=== PATIENT | male | born 1945 | race Caucasian/White ===

== ENCOUNTER 2016-11-17 14:58 | Outpatient (CLI) | payer OTHER ==
[~2016-11-17 14:58] MED LIST: ALPR0.5T96 PO; ASA PO; ATOR20TA64 PO; DEXL60CA3 PO; DIGO125T4 PO; DULO60CA41 PO; FLO44 IH; FLUT1DIS5 INH; FOLI-43 PO; GABA-533 PO; HYDROCORTISONE; LIDP TD; MELO-271 PO; MELOXICAM PO; MONT10TA22 PO; MOVE FREE PO; NIZCR60; OSCAL PO; OXYC5TAB84 PO; PRO AIR INH; TAMS-11 PO; THIA100T70 PO
== END 2016-11-17 19:55 | disposition home or self-care (01) ==
LOC: SRD 14:58
PROVIDERS: ATTEND Internal Medicine
DX: S52.591A Other fractures of lower end of right radius, initial encounter for closed fracture (principal); S52.611A Displaced fracture of right ulna styloid process, initial encounter for closed fracture; M79.89 Other specified soft tissue disorders; X58.XXXA Exposure to other specified factors, initial encounter; Y93.89 Activity, other specified; Y92.89 Other specified places as the place of occurrence of the external cause; Y99.8 Other external cause status

== ENCOUNTER 2017-10-21 11:48 | Emergency (ER) | payer OTHER ==
[~2017-10-21] VITALS: Ht 165.1 cm; Wt 72.6 kg
[2017-10-21 11:50] VITALS: BP_SYST 139
[2017-10-21] MEDS ORDERED: DIPHENHYDRAMINE INJ 50 MG/ML VIAL IVP ONE (13:45)
[2017-10-21] MEDS ORDERED: MORPHINE 4 MG/ML INJ. SYRINGE IVP ONE (13:45)
[2017-10-21 14:06] LABS: BASOPHILS # (AUTO) 0.2 K/uL (0.0-0.2); BASOPHILS % (AUTO) 2.1 % (0.0-2.0); EOSINOPHILS # (AUTO) 0.1 K/uL (0.0-0.4); EOSINOPHILS % (AUTO) 1.2 % (0.0-4.0); HEMATOCRIT 42.5 % (36-54); HEMOGLOBIN 14.2 g/dL (14.0-18.0); LYMPHOCYTES # (AUTO) 1.9 K/uL (1.0-5.5); LYMPHOCYTES % (AUTO) 17.2 % (20.5-51.5); MEAN CORPUSCULAR HEMOGLOBIN 33 pg (27-31); MEAN CORPUSCULAR HGB CONC 33 % (32-36); MEAN CORPUSCULAR VOLUME 99 fL (79.0-98.0); MONOCYTES # (AUTO) 1.5 K/uL (0.0-1.0); MONOCYTES % (AUTO) 14.1 % (1.7-9.3); NEUTROPHILS # (AUTO) 7.3 K/uL (1.8-7.7); NEUTROPHILS % (AUTO) 65.4 % (40.0-70.0); PLATELET COUNT (AUTO) 299 K/uL (130-430); RED BLOOD CELL COUNT(AUTO) 4.32 MIL/uL (4.2-6.2)
[2017-10-21 14:20] LABS: PROTHROMBIN TIME 10.2 SECS (9.5-12.5)
[2017-10-21 14:27] LABS: ANION GAP 7 (5-15); CALCIUM 8.7 mg/dL (8.4-11.0); CREATININE 0.66 mg/dL (0.55-1.30); GLUCOSE 150 mg/dL (70-99); POTASSIUM 3.9 mmol/L (3.5-5.1)
[2017-10-21 14:30] LABS: ALANINE AMINOTRANSFERASE 26 U/L (12-78); ASPARTATE AMINOTRANSFERASE 17 U/L (10-37); TOTAL BILIRUBIN 0.7 mg/dL (0.0-1.0)
[2017-10-21 14:36] LABS: CHLORIDE 92 mmol/L (98-107); SODIUM SERUM 130 mmol/L (136-145); UREA NITROGEN, BLOOD 4 mg/dL (8-21)
[2017-10-21 15:30] VITALS: BP_SYST 140
== END 2017-10-21 15:30 | disposition home or self-care (01) ==
LOC: SED 11:48
DX: S42.035A Nondisplaced fracture of lateral end of left clavicle, initial encounter for closed fracture (principal); S52.592A Other fractures of lower end of left radius, initial encounter for closed fracture; J44.9 Chronic obstructive pulmonary disease, unspecified; E11.9 Type 2 diabetes mellitus without complications; K21.9 Gastro-esophageal reflux disease without esophagitis; I10 Essential (primary) hypertension; E87.1 Hypo-osmolality and hyponatremia; R03.0 Elevated blood-pressure reading, without diagnosis of hypertension; Z79.899 Other long term (current) drug therapy; W10.9XXA Fall (on) (from) unspecified stairs and steps, initial encounter; Y93.89 Activity, other specified; Y92.89 Other specified places as the place of occurrence of the external cause; Y99.8 Other external cause status
CPT/HCPCS: 29125; 36415; 71045; 73000; 73030; 73080; 73110; 80053; 83880; 84484; 85025; 85610; 93005; 96374; 96375; 99285; J1200; J2270

== ENCOUNTER 2017-11-07 16:42 | Emergency (ER) | payer OTHER ==
[~2017-11-07] VITALS: Ht 165.1 cm; Wt 72.6 kg
[2017-11-07 16:48] VITALS: BP_SYST 120
[2017-11-07] MEDS ORDERED: NACL 0.9% 1,000 ML IV ONE (16:49)
[2017-11-07] MEDS ORDERED: ASPIRIN 81 MG TAB.CHEW PO ONE (17:00)
[2017-11-07] MEDS ORDERED: MORPHINE 4 MG/ML INJ. SYRINGE IVP ONE ×3 (17:00→18:45)
[2017-11-07] MEDS ORDERED: ONDANSETRON HCL 4 MG/2 ML VIAL IVP ONE (17:00)
[2017-11-07] MEDS ORDERED: DILTIAZEM HCL 25 MG/5 ML VIAL ONE (17:12)
[2017-11-07] MEDS ORDERED: DILTIAZEM HCL 25 MG/5 ML VIAL IVP ONE (17:15)
[2017-11-07 17:32] LABS: BASOPHILS # (AUTO) 0.1 K/uL (0.0-0.2); EOSINOPHILS # (AUTO) 0.1 K/uL (0.0-0.4); EOSINOPHILS % (AUTO) 0.8 % (0.0-4.0); HEMOGLOBIN 13.6 g/dL (14.0-18.0); LYMPHOCYTES # (AUTO) 1.9 K/uL (1.0-5.5); LYMPHOCYTES % (AUTO) 21.8 % (20.5-51.5); MEAN CORPUSCULAR HEMOGLOBIN 32 pg (27-31); MEAN CORPUSCULAR HGB CONC 33 % (32-36); MEAN CORPUSCULAR VOLUME 98 fL (79.0-98.0); MONOCYTES # (AUTO) 0.7 K/uL (0.0-1.0); MONOCYTES % (AUTO) 7.8 % (1.7-9.3); NEUTROPHILS # (AUTO) 5.9 K/uL (1.8-7.7); NEUTROPHILS % (AUTO) 68.6 % (40.0-70.0); PLATELET COUNT (AUTO) 329 K/uL (130-430); RED BLOOD CELL COUNT(AUTO) 4.21 MIL/uL (4.2-6.2); RED CELL DISTRIBUTION WIDTH 12.7 % (9.0-15.0); WHITE BLOOD COUNT (AUTO) 8.7 K/uL (4.8-10.8)
[2017-11-07 17:36] LABS: ANION GAP 8 (5-15); CALCIUM 8.7 mg/dL (8.4-11.0); CHLORIDE 93 mmol/L (98-107); CREATININE 0.79 mg/dL (0.55-1.30); GLUCOSE 214 mg/dL (70-99); POTASSIUM 3.8 mmol/L (3.5-5.1); SODIUM SERUM 126 mmol/L (136-145); UREA NITROGEN, BLOOD 6 mg/dL (8-21)
[2017-11-07 17:39] LABS: INR 1.1 (0.80-1.20); PROTHROMBIN TIME 11.2 SECS (9.5-12.5)
[2017-11-07 17:40] LABS: ALANINE AMINOTRANSFERASE 16 U/L (12-78); ALBUMIN 2.5 g/dL (3.4-4.8); ASPARTATE AMINOTRANSFERASE 17 U/L (10-37); LIPASE 60 U/L (73-393); TOTAL BILIRUBIN 0.8 mg/dL (0.0-1.0)
[2017-11-07] MEDS ORDERED: MORPHINE 4 MG/ML INJ. SYRINGE ONE (18:12)
[2017-11-07 19:20] VITALS: BP_SYST 107
== END 2017-11-07 19:20 | disposition home or self-care (01) ==
LOC: SED 16:42
DX: I48.2 Chronic atrial fibrillation (principal); G89.29 Other chronic pain; E11.65 Type 2 diabetes mellitus with hyperglycemia; J44.9 Chronic obstructive pulmonary disease, unspecified; I10 Essential (primary) hypertension; Z79.899 Other long term (current) drug therapy
CPT/HCPCS: 36415; 71045; 80053; 82550; 83690; 84484; 85025; 85610; 85730; 93005; 96361; 96374; 96375; 96376; 99285; J2270; J2405; J3490; J7030

== ENCOUNTER 2018-05-24 04:40 | Inpatient (IN) | payer OTHER ==
[2018-05-24] VITALS (19 sets, daily range): BP systolic 83–118
[~2018-05-24] VITALS: Ht 162.6 cm; Wt 68.0 kg
[~2018-05-24 04:40] MED LIST changes: +ALPR0.5T PO; -ALPR0.5T96 PO; -DEXL60CA3 PO; +DEXL60CA4 PO; +DIGO-31 PO; -DIGO125T4 PO; +KETO60CR2; -MELO-271 PO; +MELO-89 PO; -NIZCR60; +OXYC-580 PO; -OXYC5TAB84 PO
[2018-05-24] MEDS ORDERED: NACL 0.9% 1,000 ML IV SCH (05:06)
[2018-05-24] MEDS ORDERED: PRED2.5T4 PO (05:11)
[2018-05-24] MEDS ORDERED: BUSP5TAB3 PO (05:13)
[2018-05-24] MEDS ORDERED: BUDE6HFA INH (05:14)
[2018-05-24] MEDS ORDERED: ONDANSETRON HCL 4 MG/2 ML VIAL IVP ONE (05:15)
[2018-05-24] MEDS ORDERED: ATOR10TA68 PO (05:16)
[2018-05-24] MEDS ORDERED: FLUT16SP16 NS (05:20)
[2018-05-24] MEDS ORDERED: SODI1PAC NS (05:21)
[2018-05-24] MEDS ORDERED: ASPI-1153 PO (05:22)
[2018-05-24] MEDS ORDERED: GLUC-228 PO (05:23)
[2018-05-24] MEDS ORDERED: HYDR2TAB7 PO (05:25)
[2018-05-24] MEDS ORDERED: PERC10 PO (05:26)
[2018-05-24] MEDS ORDERED: FINA5TAB3 PO (05:27)
[2018-05-24] MEDS ORDERED: TAMS-11 PO (05:27)
[2018-05-24] MEDS ORDERED: THIA100T70 PO (05:28)
[2018-05-24] MEDS ORDERED: PYRI100T2 PO (05:29)
[2018-05-24] MEDS ORDERED: MULT1CAP34 (05:30)
[2018-05-24] MEDS ORDERED: ZINC50TA37 PO (05:31)
[2018-05-24] MEDS ORDERED: APIX5TAB4 PO (05:35)
[2018-05-24 05:53] LABS: BASOPHILS % (AUTO) 0.3 % (0.0-2.0); EOSINOPHILS # (AUTO) 0.1 K/uL (0.0-0.4); EOSINOPHILS % (AUTO) 0.6 % (0.0-4.0); HEMATOCRIT 29.2 % (36-54); HEMOGLOBIN 9.8 g/dL (14.0-18.0); LYMPHOCYTES # (AUTO) 3.5 K/uL (1.0-5.5); LYMPHOCYTES % (AUTO) 26.2 % (20.5-51.5); MEAN CORPUSCULAR HEMOGLOBIN 28 pg (27-31); MEAN CORPUSCULAR HGB CONC 34 % (32-36); MEAN CORPUSCULAR VOLUME 84 fL (79.0-98.0); MONOCYTES % (AUTO) 7.8 % (1.7-9.3); NEUTROPHILS # (AUTO) 8.6 K/uL (1.8-7.7); NEUTROPHILS % (AUTO) 65.1 % (40.0-70.0); RED BLOOD CELL COUNT(AUTO) 3.48 MIL/uL (4.2-6.2); RED CELL DISTRIBUTION WIDTH 15.5 % (9.0-15.0); WHITE BLOOD COUNT (AUTO) 13.2 K/uL (4.8-10.8)
[2018-05-24 06:07] LABS: PLATELET COUNT (AUTO) 327 K/uL (130-430)
[2018-05-24 06:13] LABS: ANION GAP 11 (5-15); CALCIUM 9.2 mg/dL (8.4-11.0); CHLORIDE 102 mmol/L (98-107); CREATININE 0.83 mg/dL (0.55-1.30); GLUCOSE 173 mg/dL (70-99); POTASSIUM 5.1 mmol/L (3.5-5.1); SODIUM SERUM 137 mmol/L (136-145)
[2018-05-24 06:14] LABS: INR 1.1 (0.80-1.20); PROTHROMBIN TIME 11.1 SECS (9.5-12.5)
[2018-05-24 06:22] LABS: ALANINE AMINOTRANSFERASE 12 U/L (12-78); ALBUMIN 2.4 g/dL (3.4-4.8); ASPARTATE AMINOTRANSFERASE 11 U/L (10-37); LIPASE 70 U/L (73-393); TOTAL BILIRUBIN 0.3 mg/dL (0.0-1.0)
[2018-05-24] MEDS ORDERED: DILTIAZEM HCL 25 MG/5 ML VIAL IVP ONE (06:45)
[2018-05-24] MEDS ORDERED: NACL 0.9% 1,000 ML IV ONE (06:45)
[2018-05-24 07:38] LABS: BILIRUBIN,URINE NEGATIVE (NEGATIVE); BLOOD, URINE NEGATIVE (NEGATIVE); CLARITY/URINE HAZY (CLEAR); COLOR,URINE YELLOW (YELLOW); GLUCOSE,URINE NEGATIVE (NEGATIVE); KETONES,URINE NEGATIVE (NEGATIVE); LEUKOCYTE ESTERASE ,URINE NEGATIVE (NEGATIVE); NITRITE, URINE NEGATIVE (NEGATIVE); PROTEIN URINE NEGATIVE (NEGATIVE); UROBILINOGEN,URINE 0.2 (0.2-1.0)
[2018-05-24] MEDS ORDERED: PANTOPRAZOLE SODIUM 40 MG/VIAL (PROTONIX) IVP ONE (07:45)
[2018-05-24] MEDS ORDERED: ALPRAZolam 0.25 MG TABLET PO SCH (07:45)
[2018-05-24] MEDS: DULoxetine HCL 30 MG CAPSULE.DR (CYMBALTA) PO SCH ×2 (09:00→21:00)
[2018-05-24] MEDS: D5NS 1,000 ML IV SCH ×2 (09:11→18:58)
[2018-05-24] MEDS ORDERED: ALBUTEROL SULFATE 0.083% 2.5 MG/3 ML VIAL.NEB INH PRN (10:00)
[2018-05-24] MEDS ORDERED: IPRATROPIUM BROM 0.5 MG/2.5 ML VIAL.NEB (ATROVENT) INH PRN (10:00)
[2018-05-24] MEDS: ALBUTEROL SULFATE 0.083% 2.5 MG/3 ML VIAL.NEB INH SCH ×4 (11:00→23:00)
[2018-05-24] MEDS: PANTOPRAZOLE SODIUM 40 MG in NS 50 ML IV SCH ×3 (11:10→22:21)
[2018-05-24] MEDS: IPRATROPIUM BROM 0.5 MG/2.5 ML VIAL.NEB (ATROVENT) INH SCH ×4 (11:20→23:00)
[2018-05-24] MEDS ORDERED: NS 500 ML IV ONE (11:30)
[2018-05-24] MEDS ORDERED: SIMETHICONE 40 MG/0.6 ML ML ONE (13:05)
[2018-05-24] MEDS ORDERED: BENZOCAINE 20% 0.5mL UD SPRAY MM ONE (13:05)
[2018-05-24] MEDS ORDERED: METOCLOPRAMIDE HCL 10 MG/2 ML VIAL IVP ONE (13:45)
[2018-05-24] MEDS ORDERED: METOCLOPRAMIDE HCL 10 MG/2 ML VIAL ONE (13:56)
[2018-05-24] MEDS: MIDAZOLAM HCL 5 MG/5 ML VIAL ONE ×2 (14:10→14:12)
[2018-05-24] MEDS: fentaNYL CITRATE/PF 100 MCG/2 ML AMP ONE ×2 (14:10→14:16)
[2018-05-24] MEDS: DILTIAZEM HCL 125 MG in D5W 100 ML IV SCH (14:45)
[2018-05-24] MEDS ORDERED: EPINEPHrine JECT 1 MG/10 ML SYR IVP ONE (15:58)
[2018-05-24 16:58] LABS: HEMATOCRIT 22.3 % (36-54)
[2018-05-24 16:59] LABS: HEMOGLOBIN 7.4 g/dL (14.0-18.0)
[2018-05-24] MEDS ORDERED: LORATADINE 10 MG TABLET PO ONE (17:15)
[2018-05-24] MEDS ORDERED: ACETAMINOPHEN 325 MG TABLET PO ONE (17:15)
[2018-05-24] MEDS: FINASTERIDE 5 MG TABLET (PROSCAR) PO SCH (18:29)
[2018-05-24] MEDS ORDERED: PANTOPRAZOLE SODIUM 40 MG/VIAL (PROTONIX) IVP SCH (21:00)
[2018-05-24] MEDS: ATORVASTATIN 10 MG TABLET PO SCH (21:00)
[2018-05-24 23:24] LABS: HEMATOCRIT 26.7 % (36-54); HEMOGLOBIN 8.9 g/dL (14.0-18.0)
[2018-05-25] VITALS (24 sets, daily range): BP systolic 98–139
[2018-05-25] MEDS: DILTIAZEM HCL 125 MG in D5W 100 ML IV SCH (00:12)
[2018-05-25] MEDS: PANTOPRAZOLE SODIUM 40 MG in NS 50 ML IV SCH ×4 (03:45→21:06)
[2018-05-25] MEDS: D5NS 1,000 ML IV SCH ×2 (03:55→14:16)
[2018-05-25 05:18] LABS: HEMATOCRIT 24.5 % (36-54)
[2018-05-25 05:24] LABS: HEMOGLOBIN 8.2 g/dL (14.0-18.0)
[2018-05-25] MEDS ORDERED: DILTIAZEM HCL 30 MG TABLET PO ONE (07:45)
[2018-05-25] MEDS: PREDNISONE 10 MG TABLET PO SCH (08:25)
[2018-05-25] MEDS: DULoxetine HCL 30 MG CAPSULE.DR (CYMBALTA) PO SCH ×2 (08:28→20:12)
[2018-05-25 10:34] LABS: HEMATOCRIT 23.5 % (36-54); HEMOGLOBIN 7.4 g/dL (14.0-18.0)
[2018-05-25] MEDS: DILTIAZEM HCL 30 MG TABLET PO SCH ×2 (12:38→19:15)
[2018-05-25 16:44] LABS: HEMOGLOBIN 7.5 g/dL (14.0-18.0)
[2018-05-25] MEDS: FINASTERIDE 5 MG TABLET (PROSCAR) PO SCH (19:16)
[2018-05-25] MEDS: ATORVASTATIN 10 MG TABLET PO SCH (20:12)
[2018-05-25 22:45] LABS: HEMATOCRIT 26.9 % (36-54); HEMOGLOBIN 8.9 g/dL (14.0-18.0)
[2018-05-26] VITALS (13 sets, daily range): BP systolic 116–146
[2018-05-26] MEDS: DILTIAZEM HCL 30 MG TABLET PO SCH ×5 (00:29→23:31)
[2018-05-26] MEDS: D5NS 1,000 ML IV SCH ×3 (01:21→23:27)
[2018-05-26] MEDS: PANTOPRAZOLE SODIUM 40 MG in NS 50 ML IV SCH ×5 (02:08→20:34)
[2018-05-26 05:40] LABS: ANION GAP 11 (5-15); CALCIUM 8.4 mg/dL (8.4-11.0); CHLORIDE 109 mmol/L (98-107); CREATININE 0.51 mg/dL (0.55-1.30); GLUCOSE 114 mg/dL (70-99); SODIUM SERUM 142 mmol/L (136-145); UREA NITROGEN, BLOOD 6 mg/dL (8-21)
[2018-05-26 05:41] LABS: BASOPHILS % (AUTO) 0.3 % (0.0-2.0); EOSINOPHILS # (AUTO) 0.2 K/uL (0.0-0.4); EOSINOPHILS % (AUTO) 2.5 % (0.0-4.0); HEMATOCRIT 26.6 % (36-54); HEMOGLOBIN 8.9 g/dL (14.0-18.0); LYMPHOCYTES # (AUTO) 1.9 K/uL (1.0-5.5); LYMPHOCYTES % (AUTO) 29.7 % (20.5-51.5); MEAN CORPUSCULAR HEMOGLOBIN 29 pg (27-31); MEAN CORPUSCULAR HGB CONC 34 % (32-36); MEAN CORPUSCULAR VOLUME 85 fL (79.0-98.0); MONOCYTES # (AUTO) 0.5 K/uL (0.0-1.0); MONOCYTES % (AUTO) 8.2 % (1.7-9.3); NEUTROPHILS # (AUTO) 3.9 K/uL (1.8-7.7); NEUTROPHILS % (AUTO) 59.3 % (40.0-70.0); PLATELET COUNT (AUTO) 153 K/uL (130-430); RED BLOOD CELL COUNT(AUTO) 3.11 MIL/uL (4.2-6.2); RED CELL DISTRIBUTION WIDTH 14.2 % (9.0-15.0); WHITE BLOOD COUNT (AUTO) 6.5 K/uL (4.8-10.8)
[2018-05-26 05:51] LABS: POTASSIUM 2.7 mmol/L (3.5-5.1)
[2018-05-26 08:10] LABS: ANION GAP 11 (5-15); CALCIUM 8.4 mg/dL (8.4-11.0); CHLORIDE 107 mmol/L (98-107); CREATININE 0.54 mg/dL (0.55-1.30); GLUCOSE 109 mg/dL (70-99); SODIUM SERUM 141 mmol/L (136-145); UREA NITROGEN, BLOOD 5 mg/dL (8-21)
[2018-05-26 08:23] LABS: POTASSIUM 2.8 mmol/L (3.5-5.1)
[2018-05-26] MEDS: DULoxetine HCL 30 MG CAPSULE.DR (CYMBALTA) PO SCH ×2 (08:37→20:32)
[2018-05-26] MEDS: PREDNISONE 10 MG TABLET PO SCH (08:37)
[2018-05-26 08:59] LABS: UREA NITROGEN, BLOOD 64 mg/dL (8-21)
[2018-05-26] MEDS ORDERED: POTASSIUM CHLORIDE 20 MEQ TAB.PRT.SR PO ONE (09:00)
[2018-05-26 14:54] LABS: HEMOGLOBIN 9.5 g/dL (14.0-18.0)
[2018-05-26 16:09] LABS: HEMATOCRIT 26.4 % (36-54)
[2018-05-26] MEDS: FINASTERIDE 5 MG TABLET (PROSCAR) PO SCH (17:25)
[2018-05-26] MEDS ORDERED: MENTHOL/ZINC OXIDE 113 GM OINT. TP PRN (18:30)
[2018-05-26 19:51] LABS: HEMATOCRIT 25.9 % (36-54)
[2018-05-26] MEDS: ATORVASTATIN 10 MG TABLET PO SCH (20:31)
[2018-05-27] MEDS: PANTOPRAZOLE SODIUM 40 MG in NS 50 ML IV SCH ×3 (01:31→11:45)
[2018-05-27 01:39] VITALS: BP_SYST 108
[2018-05-27] MEDS: DILTIAZEM HCL 30 MG TABLET PO SCH ×3 (05:46→18:59)
[2018-05-27] MEDS: D5NS 1,000 ML IV SCH (05:48)
[2018-05-27 08:00] VITALS: BP_SYST 147
[2018-05-27] MEDS: PREDNISONE 10 MG TABLET PO SCH (08:33)
[2018-05-27] MEDS: DULoxetine HCL 30 MG CAPSULE.DR (CYMBALTA) PO SCH (08:34)
[2018-05-27 11:57] LABS: HEMOGLOBIN 9.1 g/dL (14.0-18.0); RED BLOOD CELL COUNT(AUTO) 3.21 MIL/uL (4.2-6.2); WHITE BLOOD COUNT (AUTO) 11.4 K/uL (4.8-10.8)
[2018-05-27 11:58] LABS: HEMATOCRIT 27.1 % (36-54); LYMPHOCYTES % (AUTO) 15.4 % (20.5-51.5); MEAN CORPUSCULAR HEMOGLOBIN 28 pg (27-31); MEAN CORPUSCULAR HGB CONC 34 % (32-36); MEAN CORPUSCULAR VOLUME 84 fL (79.0-98.0); MONOCYTES % (AUTO) 7.5 % (1.7-9.3); NEUTROPHILS % (AUTO) 73.6 % (40.0-70.0); PLATELET COUNT (AUTO) 155 K/uL (130-430); RED CELL DISTRIBUTION WIDTH 14.1 % (9.0-15.0)
[2018-05-27 11:59] LABS: BASOPHILS # (AUTO) 0.2 K/uL (0.0-0.2); BASOPHILS % (AUTO) 1.6 % (0.0-2.0); EOSINOPHILS # (AUTO) 0.2 K/uL (0.0-0.4); EOSINOPHILS % (AUTO) 1.9 % (0.0-4.0); LYMPHOCYTES # (AUTO) 1.8 K/uL (1.0-5.5); MONOCYTES # (AUTO) 0.9 K/uL (0.0-1.0); NEUTROPHILS # (AUTO) 8.4 K/uL (1.8-7.7)
[2018-05-27 12:00] VITALS: BP_SYST 122
[2018-05-27 12:12] LABS: CHLORIDE 106 mmol/L (98-107); SODIUM SERUM 139 mmol/L (136-145)
[2018-05-27 12:13] LABS: ANION GAP 10 (5-15); CALCIUM 8.2 mg/dL (8.4-11.0); CREATININE 0.54 mg/dL (0.55-1.30); GLUCOSE 113 mg/dL (70-99); UREA NITROGEN, BLOOD 6 mg/dL (8-21)
[2018-05-27 12:15] LABS: POTASSIUM 2.9 mmol/L (3.5-5.1)
[2018-05-27] MEDS ORDERED: POTASSIUM CHLORIDE 20 MEQ TAB.PRT.SR PO ONE (12:45)
[2018-05-27] MEDS ORDERED: DILT180C69 PO (13:24)
[2018-05-27] MEDS ORDERED: PRO40 PO (13:24)
[2018-05-27 15:57] VITALS: BP_SYST 122
[2018-05-27 17:00] VITALS: BP_SYST 137
[2018-05-27 17:01] VITALS: BP_SYST 137
[2018-05-27] MEDS: FINASTERIDE 5 MG TABLET (PROSCAR) PO SCH (18:58)
== END 2018-05-27 20:23 | disposition home or self-care (01) | DRG 378 ==
LOC: SED 04:40 → SIC 06:55 → STU 05-26 09:52 → SMU 05-26 10:48 → STU 05-26 16:34
PROVIDERS: ADMIT Internal Medicine Hospice and Palliative Medicine; ATTEND Internal Medicine Hospice and Palliative Medicine
PROC: 3E0G8GC Introduction of Other Therapeutic Substance into Upper GI, Via Natural or Artificial Opening Endoscopic (ICD-10-PCS; 2018-05-24)
PROC: 30233N1 Transfusion of Nonautologous Red Blood Cells into Peripheral Vein, Percutaneous Approach (ICD-10-PCS; 2018-05-24)
PROC: 0W3P8ZZ Control Bleeding in Gastrointestinal Tract, Via Natural or Artificial Opening Endoscopic (ICD-10-PCS; principal; 2018-05-24 13:30)
PROC: 05HY33Z Insertion of Infusion Device into Upper Vein, Percutaneous Approach (ICD-10-PCS; 2018-05-26)
PROC: B54MZZA Ultrasonography of Right Upper Extremity Veins, Guidance (ICD-10-PCS; 2018-05-26)
DX: K25.4 Chronic or unspecified gastric ulcer with hemorrhage (principal); D68.9 Coagulation defect, unspecified; E44.0 Moderate protein-calorie malnutrition; I48.91 Unspecified atrial fibrillation; K44.9 Diaphragmatic hernia without obstruction or gangrene; J84.89 Other specified interstitial pulmonary diseases; D64.9 Anemia, unspecified; R13.10 Dysphagia, unspecified; Z79.01 Long term (current) use of anticoagulants; Z86.73 Personal history of transient ischemic attack (TIA), and cerebral infarction without residual deficits; Z93.1 Gastrostomy status; Z79.899 Other long term (current) drug therapy; Z79.82 Long term (current) use of aspirin
CPT/HCPCS: 36415; 43255; 71045; 80048; 80053; 81003; 83690-TC; 83880; 84484; 85018-TC; 85025; 85610-TC; 85730-TC; 86886; 86900; 86901; 86920; 87081; 92526-GN; 92610-GN; 93005; 93971; 94640; 96361; 96374; 96375; 99285; C1751; C9113; G0378; J0171; J2250; J2405; J2765; J3010; J3490; J7030; J7040; J7042; J7050; J7060; J7512; J7613; P9021

== ENCOUNTER 2020-09-02 16:33 | Inpatient (IN) | payer OTHER ==
[~2020-09-02] VITALS: Ht 170.2 cm; Wt 85.3 kg
[~2020-09-02 16:33] MED LIST changes: -ASA PO; +ATOR10TA68 PO; -ATOR20TA64 PO; +BUDE6HFA INH; +BUSP5TAB3 PO; -DEXL60CA4 PO; -DIGO-31 PO; +DILT180C67 PO; +FINA5TAB3 PO; -FLO44 IH; +FLUT16SP16 NS; -FLUT1DIS5 INH; -GABA-533 PO; +GLUC-228 PO; +HYDR2TAB7 PO; -HYDROCORTISONE; -KETO60CR2; -LIDP TD; -MELO-89 PO; -MELOXICAM PO; -MOVE FREE PO; +MULT1CAP34; -OXYC-580 PO; +PERC10 PO; +PRED2.5T4 PO; -PRO AIR INH; +PRO40 PO; +PYRI100T22 PO; +SODI1PAC NS; +ZINC50TA69 PO
[2020-09-02 16:45] VITALS: BP_SYST 123
[2020-09-02] MEDS ORDERED: LEVOFLOXACIN IN DEXTROSE 5 % 100 ML IV ONE (17:00)
[2020-09-02] MEDS ORDERED: VANCOMYCIN HCL 1,000 MG in NS 250 ML IV ONE (17:00)
[2020-09-02] MEDS ORDERED: NACL 0.9% 1,000 ML IV ONE (17:00)
[2020-09-02] MEDS ORDERED: ANT30 PO (17:36)
[2020-09-02] MEDS ORDERED: BUDE6HFA INH (17:36)
[2020-09-02] MEDS ORDERED: ALBU8.5H8 INH (17:36)
[2020-09-02] MEDS ORDERED: MELA5TAB12 PO (17:36)
[2020-09-02] MEDS ORDERED: ACET160S2 PO (17:36)
[2020-09-02] MEDS ORDERED: BACTOBAN (17:36)
[2020-09-02] MEDS ORDERED: APIX5TAB4 PO (17:36)
[2020-09-02] MEDS ORDERED: [UNRECOGNIZED DRUG - CODE] (17:36)
[2020-09-02] MEDS ORDERED: GABA-529 PO (17:36)
[2020-09-02] MEDS ORDERED: IPRA4AER INH (17:36)
[2020-09-02] MEDS ORDERED: VANCOMYCIN HCL 1000 MG/VIAL IV ONE (17:41)
[2020-09-02] MEDS ORDERED: MAGNESIUM SULFATE 50 ML IV ONE (18:00)
[2020-09-02] MEDS ORDERED: methylPREDNISolone SOD SUCC 500 MG/VIAL (Solu-MEDROL) IV ONE (18:00)
[2020-09-02 19:18] LABS: ANION GAP 7 (5-15); CHLORIDE 105 mmol/L (98-107); CREATININE 0.77 mg/dL (0.55-1.30); GLUCOSE 122 mg/dL (70-99); SODIUM SERUM 137 mmol/L (136-145); UREA NITROGEN, BLOOD 15 mg/dL (8-21)
[2020-09-02 19:20] LABS: ALANINE AMINOTRANSFERASE 20 U/L (12-78); ALBUMIN 2.7 g/dL (3.4-4.8); ASPARTATE AMINOTRANSFERASE 18 U/L (10-37); TOTAL BILIRUBIN 0.3 mg/dL (0.0-1.0)
[2020-09-02 19:21] LABS: BASOPHILS # (AUTO) 0.1 K/uL (0.0-0.2); BASOPHILS % (AUTO) 0.5 % (0.0-2.0); EOSINOPHILS # (AUTO) 0.1 K/uL (0.0-0.4); EOSINOPHILS % (AUTO) 0.7 % (0.0-4.0); HEMATOCRIT 28.2 % (36-54); HEMOGLOBIN 8.5 g/dL (14.0-18.0); LYMPHOCYTES # (AUTO) 1.5 K/uL (1.0-5.5); LYMPHOCYTES % (AUTO) 12.2 % (20.5-51.5); MEAN CORPUSCULAR HEMOGLOBIN 20 pg (27-31); MEAN CORPUSCULAR HGB CONC 30 % (32-36); MEAN CORPUSCULAR VOLUME 66 fL (79.0-98.0); MONOCYTES # (AUTO) 1.3 K/uL (0.0-1.0); NEUTROPHILS # (AUTO) 9.3 K/uL (1.8-7.7); NEUTROPHILS % (AUTO) 75.6 % (40.0-70.0); PLATELET COUNT (AUTO) 201 K/uL (130-430); RED BLOOD CELL COUNT(AUTO) 4.29 MIL/uL (4.2-6.2); RED CELL DISTRIBUTION WIDTH 19.6 % (9.0-15.0); WHITE BLOOD COUNT (AUTO) 12.3 K/uL (4.8-10.8)
[2020-09-02 20:13] VITALS: BP_SYST 122
[2020-09-02] MEDS ORDERED: ALBUTEROL SULFATE 0.083% 2.5 MG/3 ML VIAL.NEB INH PRN (20:15)
[2020-09-02] MEDS ORDERED: ALPRAZolam 0.25 MG TABLET PO SCH (20:30)
[2020-09-02] MEDS ORDERED: BUDESONIDE/FORMOTEROL 160-4.5 mCg, 6 GM INHALER INH SCH (21:00)
[2020-09-02] MEDS ORDERED: IPRATROPIUM/ALBUTEROL SULFATE 120 PUFFS/4 GM INH INH SCH (21:00)
[2020-09-02 21:25] VITALS: BP_SYST 122
[2020-09-02] MEDS: MAG-AL HYDROX/SIMETH 30 ML UDC PO SCH (22:02)
[2020-09-02] MEDS ORDERED: cefTRIAXone 1 GM IVPB PREMIX 50 ML IV ONE (22:03)
[2020-09-02] MEDS ORDERED: AZITHROMYCIN 500 MG/VIAL (ZITHROMAX) IV ONE (22:03)
[2020-09-02] MEDS: GABAPENTIN 100 MG CAPSULE PO SCH (22:04)
[2020-09-02] MEDS: ALPRAZolam 0.25 MG TABLET PO PRN (22:06)
[2020-09-02] MEDS: DULoxetine HCL 30 MG CAPSULE.DR (CYMBALTA) PO SCH (22:06)
[2020-09-02] MEDS: busPIRone HCL 5 MG TABLET PO SCH (22:06)
[2020-09-02] MEDS: APIXABAN 2.5 MG TABLET PO SCH (22:06)
[2020-09-02] MEDS: cefTRIAXone 1 GM IVPB PREMIX 50 ML IV SCH (22:07)
[2020-09-02] MEDS: ATORVASTATIN 10 MG TABLET PO SCH (22:08)
[2020-09-02] MEDS: AZITHROMYCIN 500 MG in NS 250 ML IV SCH (23:19)
[2020-09-03] MEDS: IPRATROPIUM/ALBUTEROL SULFATE 3 ML AMPUL.NEB (DUONEB) INH SCH ×4 (01:00→20:19)
[2020-09-03 01:39] VITALS: BP_SYST 132
[2020-09-03 06:28] LABS: BASOPHILS % (AUTO) 0.1 % (0.0-2.0); EOSINOPHILS % (AUTO) 0.4 % (0.0-4.0); HEMATOCRIT 28.8 % (36-54); HEMOGLOBIN 8.6 g/dL (14.0-18.0); LYMPHOCYTES # (AUTO) 0.7 K/uL (1.0-5.5); LYMPHOCYTES % (AUTO) 8.4 % (20.5-51.5); MEAN CORPUSCULAR HEMOGLOBIN 20 pg (27-31); MEAN CORPUSCULAR HGB CONC 30 % (32-36); MEAN CORPUSCULAR VOLUME 67 fL (79.0-98.0); MONOCYTES # (AUTO) 0.1 K/uL (0.0-1.0); MONOCYTES % (AUTO) 1.8 % (1.7-9.3); NEUTROPHILS # (AUTO) 7.1 K/uL (1.8-7.7); NEUTROPHILS % (AUTO) 89.3 % (40.0-70.0); PLATELET COUNT (AUTO) 185 K/uL (130-430); RED BLOOD CELL COUNT(AUTO) 4.33 MIL/uL (4.2-6.2); RED CELL DISTRIBUTION WIDTH 19.6 % (9.0-15.0); WHITE BLOOD COUNT (AUTO) 7.9 K/uL (4.8-10.8)
[2020-09-03 06:29] LABS: ALANINE AMINOTRANSFERASE 18 U/L (12-78); ALBUMIN 2.6 g/dL (3.4-4.8); ANION GAP 10 (5-15); ASPARTATE AMINOTRANSFERASE 10 U/L (10-37); CHLORIDE 106 mmol/L (98-107); GLUCOSE 187 mg/dL (70-99); POTASSIUM 4.1 mmol/L (3.5-5.1); SODIUM SERUM 139 mmol/L (136-145); TOTAL BILIRUBIN 0.4 mg/dL (0.0-1.0); UREA NITROGEN, BLOOD 15 mg/dL (8-21)
[2020-09-03] MEDS: BUDESONIDE 0.5 MG/2 ML AMPUL.NEB INH SCH ×2 (07:40→20:19)
[2020-09-03 08:00] VITALS: BP_SYST 119
[2020-09-03] MEDS: DULoxetine HCL 30 MG CAPSULE.DR (CYMBALTA) PO SCH ×2 (08:19→20:13)
[2020-09-03] MEDS: PANTOPRAZOLE SODIUM 40 MG TAB PO SCH (08:20)
[2020-09-03] MEDS: busPIRone HCL 5 MG TABLET PO SCH ×3 (08:20→20:14)
[2020-09-03] MEDS: ALPRAZolam 0.25 MG TABLET PO PRN (08:20)
[2020-09-03] MEDS: DILTIAZEM HCL 180 MG CAP.SR.24H PO SCH (08:21)
[2020-09-03] MEDS: APIXABAN 2.5 MG TABLET PO SCH ×2 (08:22→20:13)
[2020-09-03 11:23] VITALS: BP_SYST 131
[2020-09-03 14:03] LABS: BILIRUBIN,URINE NEGATIVE (NEGATIVE); BLOOD, URINE NEGATIVE (NEGATIVE); CLARITY/URINE CLEAR (CLEAR); COLOR,URINE YELLOW (YELLOW); GLUCOSE,URINE NEGATIVE (NEGATIVE); KETONES,URINE NEGATIVE (NEGATIVE); LEUKOCYTE ESTERASE ,URINE NEGATIVE (NEGATIVE); NITRITE, URINE NEGATIVE (NEGATIVE); PROTEIN URINE 1+ (NEGATIVE); UROBILINOGEN,URINE 0.2 (0.2-1.0)
[2020-09-03 15:23] VITALS: BP_SYST 123
[2020-09-03] MEDS: FINASTERIDE 5 MG TABLET (PROSCAR) PO SCH (17:28)
[2020-09-03] MEDS: TAMSULOSIN HCL 0.4 MG CAP PO SCH (17:28)
[2020-09-03] MEDS: MONTELUKAST 10 MG TABLET PO SCH (17:28)
[2020-09-03] MEDS: cefTRIAXone 1 GM IVPB PREMIX 50 ML IV SCH (19:44)
[2020-09-03 20:00] VITALS: BP_SYST 109
[2020-09-03] MEDS: MAG-AL HYDROX/SIMETH 30 ML UDC PO SCH (20:13)
[2020-09-03] MEDS: ATORVASTATIN 10 MG TABLET PO SCH (20:14)
[2020-09-03] MEDS: GABAPENTIN 100 MG CAPSULE PO SCH (20:14)
[2020-09-03] MEDS: AZITHROMYCIN 500 MG in NS 250 ML IV SCH (21:36)
[2020-09-04 01:06] VITALS: BP_SYST 123
[2020-09-04] MEDS: IPRATROPIUM/ALBUTEROL SULFATE 3 ML AMPUL.NEB (DUONEB) INH SCH ×3 (07:44→20:16)
[2020-09-04] MEDS: BUDESONIDE 0.5 MG/2 ML AMPUL.NEB INH SCH ×2 (07:44→20:16)
[2020-09-04 08:00] VITALS: BP_SYST 105
[2020-09-04] MEDS: DILTIAZEM HCL 180 MG CAP.SR.24H PO SCH (10:42)
[2020-09-04] MEDS: busPIRone HCL 5 MG TABLET PO SCH ×3 (10:43→21:05)
[2020-09-04] MEDS: DULoxetine HCL 30 MG CAPSULE.DR (CYMBALTA) PO SCH ×2 (10:43→21:05)
[2020-09-04] MEDS: PANTOPRAZOLE SODIUM 40 MG TAB PO SCH (10:43)
[2020-09-04] MEDS: APIXABAN 2.5 MG TABLET PO SCH ×2 (10:44→21:06)
[2020-09-04] MEDS: ALPRAZolam 0.25 MG TABLET PO PRN (10:44)
[2020-09-04 11:24] VITALS: BP_SYST 101
[2020-09-04 15:53] VITALS: BP_SYST 99
[2020-09-04] MEDS: FINASTERIDE 5 MG TABLET (PROSCAR) PO SCH (17:37)
[2020-09-04] MEDS: MONTELUKAST 10 MG TABLET PO SCH (17:37)
[2020-09-04] MEDS: TAMSULOSIN HCL 0.4 MG CAP PO SCH (17:37)
[2020-09-04] MEDS: cefTRIAXone 1 GM IVPB PREMIX 50 ML IV SCH (19:45)
[2020-09-04] MEDS: ACETAMINOPHEN 325 MG TABLET PO PRN (19:46)
[2020-09-04 20:00] VITALS: BP_SYST 133
[2020-09-04] MEDS: AZITHROMYCIN 500 MG in NS 250 ML IV SCH (21:05)
[2020-09-04] MEDS: GABAPENTIN 100 MG CAPSULE PO SCH (21:05)
[2020-09-04] MEDS: ATORVASTATIN 10 MG TABLET PO SCH (21:05)
[2020-09-04] MEDS: MAG-AL HYDROX/SIMETH 30 ML UDC PO SCH (21:05)
[2020-09-05 00:08] VITALS: BP_SYST 124
[2020-09-05] MEDS: IPRATROPIUM/ALBUTEROL SULFATE 3 ML AMPUL.NEB (DUONEB) INH SCH ×4 (03:30→19:05)
[2020-09-05] MEDS: BUDESONIDE 0.5 MG/2 ML AMPUL.NEB INH SCH ×2 (07:18→19:05)
[2020-09-05 08:00] VITALS: BP_SYST 120
[2020-09-05] MEDS: DULoxetine HCL 30 MG CAPSULE.DR (CYMBALTA) PO SCH ×2 (09:13→21:09)
[2020-09-05] MEDS: busPIRone HCL 5 MG TABLET PO SCH ×3 (09:14→21:09)
[2020-09-05] MEDS: DILTIAZEM HCL 180 MG CAP.SR.24H PO SCH (09:14)
[2020-09-05] MEDS: PANTOPRAZOLE SODIUM 40 MG TAB PO SCH (09:14)
[2020-09-05] MEDS: APIXABAN 2.5 MG TABLET PO SCH ×2 (09:16→21:09)
[2020-09-05 12:12] VITALS: BP_SYST 124
[2020-09-05 16:00] VITALS: BP_SYST 138
[2020-09-05 17:15] VITALS: BP_SYST 138
[2020-09-05] MEDS: MONTELUKAST 10 MG TABLET PO SCH (19:41)
[2020-09-05] MEDS: FINASTERIDE 5 MG TABLET (PROSCAR) PO SCH (19:41)
[2020-09-05] MEDS: TAMSULOSIN HCL 0.4 MG CAP PO SCH (19:41)
[2020-09-05 20:00] VITALS: BP_SYST 112
[2020-09-05] MEDS: GABAPENTIN 100 MG CAPSULE PO SCH (21:08)
[2020-09-05] MEDS: ATORVASTATIN 10 MG TABLET PO SCH (21:09)
[2020-09-05] MEDS: MAG-AL HYDROX/SIMETH 30 ML UDC PO SCH (21:09)
[2020-09-05] MEDS: cefTRIAXone 1 GM IVPB PREMIX 50 ML IV SCH (21:09)
[2020-09-05] MEDS: AZITHROMYCIN 500 MG in NS 250 ML IV SCH (21:10)
[2020-09-05] MEDS: ACETAMINOPHEN 325 MG TABLET PO PRN (22:43)
[2020-09-06 01:17] VITALS: BP_SYST 113
[2020-09-06 07:12] LABS: BASOPHILS % (AUTO) 0.5 % (0.0-2.0); EOSINOPHILS # (AUTO) 0.2 K/uL (0.0-0.4); EOSINOPHILS % (AUTO) 3.2 % (0.0-4.0); HEMATOCRIT 26.3 % (36-54); HEMOGLOBIN 7.9 g/dL (14.0-18.0); LYMPHOCYTES # (AUTO) 1.6 K/uL (1.0-5.5); LYMPHOCYTES % (AUTO) 28.8 % (20.5-51.5); MEAN CORPUSCULAR HEMOGLOBIN 20 pg (27-31); MEAN CORPUSCULAR HGB CONC 30 % (32-36); MEAN CORPUSCULAR VOLUME 66 fL (79.0-98.0); MONOCYTES # (AUTO) 0.7 K/uL (0.0-1.0); MONOCYTES % (AUTO) 11.8 % (1.7-9.3); NEUTROPHILS # (AUTO) 3.1 K/uL (1.8-7.7); NEUTROPHILS % (AUTO) 55.7 % (40.0-70.0); PLATELET COUNT (AUTO) 180 K/uL (130-430); RED BLOOD CELL COUNT(AUTO) 3.97 MIL/uL (4.2-6.2); WHITE BLOOD COUNT (AUTO) 5.6 K/uL (4.8-10.8)
[2020-09-06] MEDS: BUDESONIDE 0.5 MG/2 ML AMPUL.NEB INH SCH (07:12)
[2020-09-06] MEDS: IPRATROPIUM/ALBUTEROL SULFATE 3 ML AMPUL.NEB (DUONEB) INH SCH ×2 (07:12→13:19)
[2020-09-06 07:35] LABS: ALANINE AMINOTRANSFERASE 21 U/L (12-78); ALBUMIN 2.4 g/dL (3.4-4.8); ANION GAP 6 (5-15); ASPARTATE AMINOTRANSFERASE 13 U/L (10-37); CALCIUM 7.9 mg/dL (8.4-11.0); CHLORIDE 107 mmol/L (98-107); CREATININE 0.66 mg/dL (0.55-1.30); GLUCOSE 96 mg/dL (70-99); POTASSIUM 4.1 mmol/L (3.5-5.1); SODIUM SERUM 140 mmol/L (136-145); TOTAL BILIRUBIN 0.3 mg/dL (0.0-1.0); UREA NITROGEN, BLOOD 14 mg/dL (8-21)
[2020-09-06 08:00] VITALS: BP_SYST 122
[2020-09-06] MEDS: DULoxetine HCL 30 MG CAPSULE.DR (CYMBALTA) PO SCH (08:50)
[2020-09-06] MEDS: busPIRone HCL 5 MG TABLET PO SCH (08:50)
[2020-09-06] MEDS: PANTOPRAZOLE SODIUM 40 MG TAB PO SCH (08:50)
[2020-09-06] MEDS: DILTIAZEM HCL 180 MG CAP.SR.24H PO SCH (08:51)
[2020-09-06] MEDS: APIXABAN 2.5 MG TABLET PO SCH (08:52)
[2020-09-06] MEDS ORDERED: AMOX-423 PO (11:11)
[2020-09-06] MEDS ORDERED: ALBU0.63 NEB (11:11)
[2020-09-06 11:26] VITALS: BP_SYST 145
[2020-09-06 13:22] VITALS: BP_SYST 145
== END 2020-09-06 14:20 | disposition home or self-care (01) | DRG 871 ==
LOC: SED 16:33 → STU 18:31
PROVIDERS: ADMIT Internal Medicine; ATTEND Internal Medicine
DX: A41.9 Sepsis, unspecified organism (principal); J96.01 Acute respiratory failure with hypoxia; J15.9 Unspecified bacterial pneumonia; J44.0 Chronic obstructive pulmonary disease with (acute) lower respiratory infection; J44.1 Chronic obstructive pulmonary disease with (acute) exacerbation; I48.91 Unspecified atrial fibrillation; K21.9 Gastro-esophageal reflux disease without esophagitis; M54.9 Dorsalgia, unspecified; G89.29 Other chronic pain; I25.10 Atherosclerotic heart disease of native coronary artery without angina pectoris; E11.40 Type 2 diabetes mellitus with diabetic neuropathy, unspecified; I10 Essential (primary) hypertension; Z20.822 Contact with and (suspected) exposure to COVID-19; Z79.899 Other long term (current) drug therapy; Z79.01 Long term (current) use of anticoagulants; Z82.49 Family history of ischemic heart disease and other diseases of the circulatory system; Z86.73 Personal history of transient ischemic attack (TIA), and cerebral infarction without residual deficits; Z74.01 Bed confinement status
CPT/HCPCS: 36415; 36600; 71045; 71250-TC; 76376; 80053; 81003; 82803-TC; 83605; 84484; 85025; 87040-TC; 87081; 92610-GN; 93005; 94640; 94760; 96365; 96375; 97110-GP; 97530-GP; 99291; G0378; J0456; J0696; J1956; J3370; J3475; J7030; J7050; J7626

== ENCOUNTER 2021-04-09 12:20 | Emergency (ER) | payer OTHER, SELFPAY ==
[~2021-04-09] VITALS: Ht 172.7 cm; Wt 90.7 kg
[2021-04-09 12:20] VITALS: BP_SYST 153
[~2021-04-09 12:20] MED LIST changes: +ACET160S2 PO; +ALBU0.63 NEB; +ALBU8.5H8 INH; +ANT30 PO; +APIX5TAB4 PO; +BACL20TA PO; +BACTOBAN; +DILR3 PO; -FLUT16SP16 NS; -GLUC-228 PO; -HYDR2TAB7 PO; +IPRA4AER INH; +MAGN400T10 PO; +MELA10TA2 PO; +MENT118G TP; +NEU300 PO; -OSCAL PO; -PERC10 PO; -PRED2.5T4 PO; +PYRI100T10 PO; -PYRI100T22 PO; -ZINC50TA69 PO; +[UNRECOGNIZED DRUG - CODE]
[2021-04-09] MEDS ORDERED: LIDOCAINE/EPI 1% 1:100000 20 ML VIAL INJ ONE (12:45)
[2021-04-09] MEDS ORDERED: BACITRACIN 1 GM OINT TP ONE (12:45)
[2021-04-09] MEDS ORDERED: BACI15OI13 TP (13:15)
[2021-04-09] MEDS ORDERED: ACETAMINOPHEN 325 MG TABLET PO ONE (14:00)
[2021-04-09 14:03] VITALS: BP_SYST 153
== END 2021-04-09 14:04 | disposition home or self-care (01) ==
LOC: SED 12:20
DX: S61.412A Laceration without foreign body of left hand, initial encounter (principal); I10 Essential (primary) hypertension; E11.9 Type 2 diabetes mellitus without complications; J45.909 Unspecified asthma, uncomplicated; K21.9 Gastro-esophageal reflux disease without esophagitis; I48.91 Unspecified atrial fibrillation; Z79.899 Other long term (current) drug therapy; W23.0XXA Caught, crushed, jammed, or pinched between moving objects, initial encounter; Y93.89 Activity, other specified; Y92.89 Other specified places as the place of occurrence of the external cause; Y99.8 Other external cause status
CPT/HCPCS: 99283

== ENCOUNTER 2021-12-14 10:40 | Inpatient (IN) | payer OTHER ==
[~2021-12-14] VITALS: Ht 170.2 cm; Wt 81.6 kg
[2021-12-14 10:40] VITALS: BP_SYST 127
[~2021-12-14 10:40] MED LIST changes: +BACI15OI13 TP; -DULO60CA41 PO; +DULO60CA42 PO
--- NOTE | 2021-12-14 10:40 | NUR ---
ADMISSION NOTE Received patient from home. 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 Patient is awake, alert, oriented X 4. Patient oriented to hospital room, call light, toileting, pain management and safety-teach back done. Personal belongings checked and Belongings List documented. Call light within reach.
[2021-12-14] MEDS: NORMAL SALINE 5 ML DISP.SYRIN IVF SCH ×2 (15:37→22:47)
[2021-12-14] MEDS ORDERED: BISACODYL 5 MG TABLET.DR (DULCOLAX) PO ONE (16:00)
[2021-12-14] MEDS ORDERED: GOLYTELY / COLYTE SOLUTION 4 LITERS PO ONE (18:00)
--- NOTE | 2021-12-14 18:00 | NUR ---
CLOSING NOTE: Endorse to Nurse Judge that Patient will have colonoscopy tomorrow at 7 am, on clear liquid diet, NPO after midnight. On Golytely to be finished before midnight, tap water enema tomorrow at 6 AM.
[2021-12-14 18:10] VITALS: BP_SYST 127
[2021-12-14 20:00] VITALS: BP_SYST 122
--- NOTE | 2021-12-14 21:50 | NUR ---
CALLED DR. WETZEL TWICE AND PAGED TWICE TO RECONCILE ALL HOME MEDICATIONS BUT MD DID NOT CALLED BACK YET. dR. IVEY CALLED BACK BUT DID NOT VERIFY THE MEDS AND ONLY ORDERED TYLENOL PRN FOR PAIN. SAID THAT DR. WETZEL WILL HAVE TO VERIFY ALL MEDS. AWAITING FOR DR. WETZEL TO CALL BACK. RESOURCE NURSE AND CHARGE NURSE MADE AWARE.
[2021-12-14] MEDS ORDERED: ACETAMINOPHEN 325 MG TABLET PO PRN (22:00)
[2021-12-15] VITALS: BP_SYST 118
--- NOTE | 2021-12-15 00:01 | NUR ---
WENT INTO THE ROOM AND CHECKED FOR THE PATIENT IF HE DRINKS HIS GOLYTELY AMD NOTED THAT HE IS NOT DRINKING ANYTHING. ENCOURAGED THE PATIENT TO DRINK IT BUT HE IS NOT COMPLIANT AND SAID THAT HE WILL DRINK IT WHENEVER HE WANTS. EXPLAINED TO THE PATIENT THE RISKS AND BENEFITS OF NOT DRINKING HIS GO;YTELY BUT STILL HE IS NOT COMPLIANT. INFORMED RESOURCE NURSE AND HE SAID TO CALL DR. IVEY AND INFORMED ABOUT IT. DR. IVEY WAS PAGED TWICE AND NO CALL BACK ANSWER YET. AWAITING FOR MD TO CALL BACK.
--- NOTE | 2021-12-15 00:12 | NUR ---
WENT INTO THE ROOM AND ASKED THE PATIENT TO CONTINUE DRINKING HIS GOLYTELY AND HE SAID HE WILL DRINK IT WHENEVER HE WANTS. STILL EXPLAINED TO THE PATIENT IF HE'S NOT DRINKING IT THE COLONOSCOPY WILL NOT BE DONE TODAY. PATIENT REMAINS NON COMPLIANT REGARDING TAKING HIS GOLYTELY. RESOURCE NURSE WAS BEEN NOTIFIED. DR. IVEY WAS BEEN PAGED BUT DID NOT CALLED BACK YET.
[2021-12-15 04:00] VITALS: BP_SYST 124
--- NOTE | 2021-12-15 04:15 | NUR ---
WENT IN THE ROOM TO CHECK ON PATIENT. PATIENT IS WET. CHANGED PATIENT AND MAINTAINED CLEAN. ENCOURAGE PATIENT TO KEEP DRINKING HIS GOLYTELY IN FACT OFFERED HIM ANOTHER CUP BUT HE VEHEMENTLY REFUSED IT. PATIENT IS STILL NON-COMPLIANT AT THIS TIME. DR. IVEY WAS BEEN PAGED BUT STILL NO CALL BACK MADE. RESOURCE NURSE CARLTON KERR WAS ALSO MADE AWARE. SAID TO WAIT FOR MD TO CALL BACK.
[2021-12-15] MEDS: NORMAL SALINE 5 ML DISP.SYRIN IVF SCH (06:15)
--- NOTE | 2021-12-15 06:15 | NUR ---
GI SENSITOMETRIST CAME AND ASSESSED THE PATIENT. TOLD RN THAT THE PATIENT WAS NOT TAKING HIS GOLTYELY AND WAS NON-COMPLIANT REGARDING IT. TOLD THAT PATIENT ONLY TOOK 2 CUPS LAST NIGHT. NO FURTHER ORDER MADE.
--- NOTE | 2021-12-15 06:20 | NUR ---
DR. WETZEL CALLED AND WAS UPDATED THAT THE PATIENT ONLY TOOL 2 CUPS OF GOLYTELY AND AFTER THAT THE PATIENT REFUSED TAKING IT. MD SAID HE WILL COME TODAY AND TALK TO THE PATIENT. GAVE PATIENT TYLENOL PRN X1. COMFORTABLE ON BED RIGHT NOW. PATIENT WAS CHANGED AND CLEANED ALSO THIS MORNING. STABLE. NO DISTRESS. ALL NEEDS ATTENDED. CALL LIGHT PLACED WITHIN REACH. MONITORED CLOSELY.
[2021-12-15 07:40] VITALS: BP_SYST 145
--- NOTE | 2021-12-15 07:40 | NUR ---
Opening Notes Received report from Alfie KERR. Patient is laying in bed awake. A/O x4. No apparent distress noted. Vitals as charted. Call light within reach. Safety and fall precautions in place. All needs met.
--- NOTE | 2021-12-15 07:41 | NUR ---
Dr. Paredes Received verbal orders for patient to be D/C home. Patient unable to take golytely for procedure prep. Procedure cancelled.
--- NOTE | 2021-12-15 10:34 | NUR ---
Note Spoke with Padma to let her know patient is going home. Padma stated ambulance is covered by his insurance and that will be his transportation home. [facility] .
[2021-12-15 12:00] VITALS: BP_SYST 144
--- NOTE | 2021-12-15 12:05 | NUR ---
Case Management Spoke with Preethi wrapper caser. She states ambulance picker is set up for patient. Will call [facility].
--- NOTE | 2021-12-15 12:07 | NUR ---
[facility] Spoke with [place], audie approved pickup for patient on their end. Will let rn case management know.
--- NOTE | 2021-12-15 12:09 | NUR ---
Case management Left heriberto a voicemail letting her know the [facility] does not reflect anything approved for pickup on patient's insurance.
--- NOTE | 2021-12-15 14:46 | NUR ---
purchasing manager/sales Spoke with Preethi, she will contact [facility] directly to set up pickup for patient.
--- NOTE | 2021-12-15 15:33 | NUR ---
[facility] will will pickle processor 4:30 PM
[2021-12-15 16:27] VITALS: BP_SYST 145
--- NOTE | 2021-12-15 17:00 | NUR ---
D/C Patient Patient given medication reconciliation form and D/C instructions. Exit Care provided. Patient verbalized understanding. MD discussed with patient the results and treatment provided. Ambulatory with steady gait for discharge to home. Patient in stable condition, ID band removed. IV catheter removed, intact and dressing applied, no active bleeding. Patient educated on pain management. All belongings sent with patient. Patient taken home via ambulance.
== END 2021-12-15 18:00 | disposition home or self-care (01) | DRG 395 ==
LOC: SMU 10:40 → EDSTATUS 12-15 07:00
PROVIDERS: ADMIT Internal Medicine; ATTEND Internal Medicine
DX: K63.5 Polyp of colon (principal); I48.91 Unspecified atrial fibrillation; J45.909 Unspecified asthma, uncomplicated; F41.9 Anxiety disorder, unspecified; F32.9 Major depressive disorder, single episode, unspecified; K21.9 Gastro-esophageal reflux disease without esophagitis; I10 Essential (primary) hypertension; N40.0 Benign prostatic hyperplasia without lower urinary tract symptoms; J44.9 Chronic obstructive pulmonary disease, unspecified; E11.9 Type 2 diabetes mellitus without complications; Z53.8 Procedure and treatment not carried out for other reasons; M48.02 Spinal stenosis, cervical region; K70.9 Alcoholic liver disease, unspecified; K57.90 Diverticulosis of intestine, part unspecified, without perforation or abscess without bleeding; K64.8 Other hemorrhoids; Z20.822 Contact with and (suspected) exposure to COVID-19; Z79.899 Other long term (current) drug therapy; Z87.891 Personal history of nicotine dependence
CPT/HCPCS: 36415

== ENCOUNTER 2022-06-01 14:33 | Inpatient (IN) | payer OTHER ==
[~2022-06-01] VITALS: Ht 165.1 cm; Wt 88.9 kg
[2022-06-01 14:35] VITALS: BP_SYST 128
[2022-06-01 16:00] VITALS: BP_SYST 124
[2022-06-01] MEDS ORDERED: IPRATROPIUM/ALBUTEROL SULFATE 120 PUFFS/4 GM INH INH SCH (18:30)
[2022-06-01] MEDS ORDERED: ALPRAZolam 0.25 MG TABLET PO PRN (18:30)
[2022-06-01] MEDS ORDERED: ACETAMINOPHEN 325 MG TABLET PO PRN (18:30)
[2022-06-01] MEDS ORDERED: NALOXONE HCL 0.4 MG/ML AMP (NARCAN) IVP PRN (18:30)
[2022-06-01] MEDS ORDERED: GOLYTELY / COLYTE SOLUTION 4 LITERS PO ONE (18:30)
[2022-06-01] MEDS ORDERED: BISACODYL 5 MG TABLET.DR (DULCOLAX) PO ONE (18:30)
[2022-06-01 20:00] VITALS: BP_SYST 132
[2022-06-01] MEDS ORDERED: ALBUTEROL SULFATE 0.083% 2.5 MG/3 ML VIAL.NEB INH ONE (20:15)
[2022-06-01] MEDS ORDERED: IPRATROPIUM/ALBUTEROL SULFATE 3 ML AMPUL.NEB (DUONEB) INH PRN (20:15)
[2022-06-01] MEDS ORDERED: FINASTERIDE 5 MG TABLET (PROSCAR) PO SCH (21:00)
[2022-06-01] MEDS: MONTELUKAST 10 MG TABLET PO SCH (21:20)
[2022-06-01] MEDS: GABAPENTIN 300 MG CAPSULE PO SCH (21:21)
[2022-06-01] MEDS: ATORVASTATIN 10 MG TABLET PO SCH (21:21)
[2022-06-01] MEDS: DILTIAZEM HCL 180 MG CAP.SR.24H PO SCH (21:22)
[2022-06-01] MEDS: busPIRone HCL 5 MG TABLET PO SCH (21:23)
[2022-06-01] MEDS: DULoxetine HCL 30 MG CAPSULE.DR (CYMBALTA) PO SCH (21:23)
[2022-06-01] MEDS: BACLOFEN 10 MG TABLET PO SCH (21:24)
[2022-06-01] MEDS: MAG-AL HYDROX/SIMETH 30 ML UDC PO SCH (21:31)
[2022-06-02] VITALS: BP_SYST 142
[2022-06-02 04:00] VITALS: BP_SYST 138
[2022-06-02 04:39] VITALS: BP_SYST 142
[2022-06-02 06:54] LABS: BASOPHILS % (AUTO) 0.5 % (0.0-2.0); EOSINOPHILS # (AUTO) 0.2 K/uL (0.0-0.4); EOSINOPHILS % (AUTO) 2.6 % (0.0-4.0); HEMATOCRIT 41.1 % (36-54); HEMOGLOBIN 13.8 g/dL (14.0-18.0); LYMPHOCYTES % (AUTO) 33.9 % (20.5-51.5); MEAN CORPUSCULAR HEMOGLOBIN 30 pg (27-31); MEAN CORPUSCULAR HGB CONC 34 % (32-36); MEAN CORPUSCULAR VOLUME 91 fL (79.0-98.0); MONOCYTES # (AUTO) 1.3 K/uL (0.0-1.0); MONOCYTES % (AUTO) 14.5 % (1.7-9.3); NEUTROPHILS # (AUTO) 4.3 K/uL (1.8-7.7); NEUTROPHILS % (AUTO) 48.5 % (40.0-70.0); PLATELET COUNT (AUTO) 169 K/uL (130-430); RED BLOOD CELL COUNT(AUTO) 4.54 MIL/uL (4.2-6.2); WHITE BLOOD COUNT (AUTO) 8.9 K/uL (4.8-10.8)
[2022-06-02] MEDS: ALBUTEROL SULFATE 0.083% 2.5 MG/3 ML VIAL.NEB INH SCH ×4 (07:00→20:18)
[2022-06-02 07:14] LABS: PROTHROMBIN TIME 10.3 SECS (9.5-12.5)
[2022-06-02] MEDS ORDERED: PROPOFOL 200MG/ 20ML VIAL (DIPRIVAN) IV ONE (07:20)
[2022-06-02 07:23] LABS: ALANINE AMINOTRANSFERASE 20 U/L (12-78); ANION GAP 10 (5-15); ASPARTATE AMINOTRANSFERASE 15 U/L (10-37); CALCIUM 8.9 mg/dL (8.4-11.0); CHLORIDE 101 mmol/L (98-107); CREATININE 0.69 mg/dL (0.55-1.30); GLUCOSE 113 mg/dL (70-99); TOTAL BILIRUBIN 0.5 mg/dL (0.0-1.0); UREA NITROGEN, BLOOD 9 mg/dL (8-21)
[2022-06-02] MEDS ORDERED: SIMETHICONE 40 MG/0.6 ML ML ONE (07:37)
[2022-06-02] MEDS: DULoxetine HCL 30 MG CAPSULE.DR (CYMBALTA) PO SCH (10:32)
[2022-06-02] MEDS: FOLIC ACID 1 MG TABLET PO SCH (10:33)
[2022-06-02] MEDS: THIAMINE HCL 100 MG TABLET PO SCH (10:33)
[2022-06-02] MEDS: PANTOPRAZOLE SODIUM 40 MG TAB PO SCH (10:33)
[2022-06-02] MEDS: BACLOFEN 10 MG TABLET PO SCH ×3 (10:33→17:29)
[2022-06-02] MEDS: busPIRone HCL 5 MG TABLET PO SCH ×2 (10:33→14:17)
[2022-06-02] MEDS: PYRIDOXINE HCL 50 MG TABLET PO SCH (10:33)
[2022-06-02 11:30] VITALS: BP_SYST 139
[2022-06-02 11:39] VITALS: BP_SYST 126
[2022-06-02 15:10] VITALS: BP_SYST 145
[2022-06-02] MEDS: HYDROmorphone 2 MG TAB PO PRN (17:35)
[2022-06-02] MEDS: MAG-AL HYDROX/SIMETH 30 ML UDC PO SCH (21:00)
[2022-06-02] MEDS: MONTELUKAST 10 MG TABLET PO SCH (21:00)
[2022-06-02] MEDS ORDERED: TAMSULOSIN HCL 0.4 MG CAP PO SCH (21:00)
[2022-06-02] MEDS: ATORVASTATIN 10 MG TABLET PO SCH (21:00)
[2022-06-02] MEDS: DILTIAZEM HCL 180 MG CAP.SR.24H PO SCH (21:00)
[2022-06-02] MEDS: GABAPENTIN 300 MG CAPSULE PO SCH (21:00)
[2022-06-03 00:23] VITALS: BP_SYST 133
[2022-06-03] MEDS: HYDROmorphone 2 MG TAB PO PRN ×2 (04:08→08:57)
[2022-06-03] MEDS: ALBUTEROL SULFATE 0.083% 2.5 MG/3 ML VIAL.NEB INH SCH (07:00)
[2022-06-03 08:00] VITALS: BP_SYST 145
[2022-06-03 08:13] VITALS: BP_SYST 145
[2022-06-03] MEDS: THIAMINE HCL 100 MG TABLET PO SCH (08:48)
[2022-06-03] MEDS: PANTOPRAZOLE SODIUM 40 MG TAB PO SCH (08:48)
[2022-06-03] MEDS: DULoxetine HCL 30 MG CAPSULE.DR (CYMBALTA) PO SCH (08:49)
[2022-06-03] MEDS: busPIRone HCL 5 MG TABLET PO SCH (08:49)
[2022-06-03] MEDS: BACLOFEN 10 MG TABLET PO SCH (08:49)
[2022-06-03] MEDS: PYRIDOXINE HCL 50 MG TABLET PO SCH (08:49)
[2022-06-03] MEDS: FOLIC ACID 1 MG TABLET PO SCH (08:49)
== END 2022-06-03 09:45 | disposition home or self-care (01) | DRG 392 ==
LOC: SMU 14:33
PROVIDERS: ADMIT Internal Medicine; ATTEND Internal Medicine
PROC: 0DBN8ZZ Excision of Sigmoid Colon, Via Natural or Artificial Opening Endoscopic (ICD-10-PCS; principal; 2022-06-02 07:30)
DX: K57.30 Diverticulosis of large intestine without perforation or abscess without bleeding (principal); K63.5 Polyp of colon; Z20.822 Contact with and (suspected) exposure to COVID-19; K21.9 Gastro-esophageal reflux disease without esophagitis; J44.9 Chronic obstructive pulmonary disease, unspecified; I10 Essential (primary) hypertension; K70.0 Alcoholic fatty liver; Z87.19 Personal history of other diseases of the digestive system; Z87.891 Personal history of nicotine dependence
CPT/HCPCS: 36415; 71045; 80053; 85025; 85610-TC; 85730-TC; 87081; 88305; 93005; 94640; 94760; J2704; J7613

== ENCOUNTER 2022-06-08 09:35 | Outpatient (CLI) | payer OTHER | END 2022-06-08 19:18 | disposition home or self-care (01) | LOC: SRD 09:35 | PROVIDERS: ATTEND Internal Medicine | DX: K57.30 Diverticulosis of large intestine without perforation or abscess without bleeding (principal); Z53.9 Procedure and treatment not carried out, unspecified reason | CPT/HCPCS: 74280-TC ==

== ENCOUNTER 2023-01-20 13:25 | Emergency (ER) | payer OTHER ==
[~2023-01-20] VITALS: Ht 170.2 cm; Wt 83.9 kg
[~2023-01-20 13:25] MED LIST changes: +MONT-47 PO; -MONT10TA22 PO
[2023-01-20 13:31] VITALS: BP_SYST 163; PULSE 113; RESP 18; TEMP 99; O2SAT 97
[2023-01-20 15:13] LABS: BASOPHILS % (AUTO) 0.2 % (0.0-2.0); EOSINOPHILS % (AUTO) 0.1 % (0.0-4.0); HEMATOCRIT 40.3 % (36-54); HEMOGLOBIN 13.1 g/dL (14.0-18.0); LYMPHOCYTES # (AUTO) 1.1 K/uL (1.0-5.5); LYMPHOCYTES % (AUTO) 12.8 % (20.5-51.5); MEAN CORPUSCULAR HEMOGLOBIN 28 pg (27-31); MEAN CORPUSCULAR HGB CONC 32 % (32-36); MEAN CORPUSCULAR VOLUME 85 fL (79.0-98.0); MONOCYTES # (AUTO) 0.4 K/uL (0.0-1.0); MONOCYTES % (AUTO) 5.2 % (1.7-9.3); NEUTROPHILS # (AUTO) 6.9 K/uL (1.8-7.7); NEUTROPHILS % (AUTO) 81.7 % (40.0-70.0); PLATELET COUNT (AUTO) 121 K/uL (130-430); RED BLOOD CELL COUNT(AUTO) 4.75 MIL/uL (4.2-6.2); RED CELL DISTRIBUTION WIDTH 16.4 % (9.0-15.0); WHITE BLOOD COUNT (AUTO) 8.5 K/uL (4.8-10.8)
[2023-01-20] MEDS ORDERED: MAG-AL HYDROX/SIMETH 30 ML UDC PO ONE (15:15)
[2023-01-20] MEDS ORDERED: LIDOCAINE VISCOUS 2%, 15 ML UDC MM ONE (15:15)
[2023-01-20 15:16] LABS: INFLUENZA TYPE A negative (NEGATIVE); INFLUENZA TYPE B NEGATIVE (NEGATIVE)
[2023-01-20 15:26] LABS: ANION GAP 9 (5-15); CALCIUM 8.3 mg/dL (8.4-11.0); CARBON DIOXIDE 29 mmol/L (23-29); CHLORIDE 99 mmol/L (98-107); CREATININE 0.62 mg/dL (0.55-1.30); GLUCOSE 194 mg/dL (74-106); POTASSIUM 4.7 mmol/L (3.5-5.1); SODIUM SERUM 137 mmol/L (136-145); UREA NITROGEN, BLOOD 16 mg/dL (8-21)
[2023-01-20 15:33] LABS: ALANINE AMINOTRANSFERASE 18 U/L (12-78); ALBUMIN 2.6 g/dL (3.4-4.8); ASPARTATE AMINOTRANSFERASE 11 U/L (10-37); TOTAL BILIRUBIN 0.5 mg/dL (0.0-1.0); TOTAL PROTEIN, SERUM 6.8 g/dL (6.4-8.3)
[2023-01-20 17:38] LABS: BILIRUBIN,URINE NEGATIVE (NEGATIVE); BLOOD, URINE TRACE (NEGATIVE); CLARITY/URINE CLOUDY (CLEAR); COLOR,URINE YELLOW (YELLOW); GLUCOSE,URINE NEGATIVE (NEGATIVE); KETONES,URINE TRACE (NEGATIVE); LEUKOCYTE ESTERASE ,URINE NEGATIVE (NEGATIVE); NITRITE, URINE NEGATIVE (NEGATIVE); PROTEIN URINE 1+ (NEGATIVE); UROBILINOGEN,URINE 0.2 (0.2-1.0)
[2023-01-20 17:39] LABS: BACTERIA,URINE MODERATE /HPF (None Seen); RBC,URINE 0-3 /HPF (0-3)
[2023-01-20 17:40] LABS: MUCUS,URINE None Seen /LPF (None Seen); URINE AMORPHOUS PHOSPHATES 3+ /HPF (None Seen)
[2023-01-20] MEDS ORDERED: cefTRIAXone 1 GM in LIDOCAINE 1%, 20 ML MDV 2.1 ML IM ONE (18:00)
[2023-01-20] MEDS ORDERED: CEPH-548 PO (18:26)
[2023-01-20 22:06] VITALS: BP_SYST 133; PULSE 92; RESP 18; TEMP 98.6; O2SAT 97
== END 2023-01-20 22:06 | disposition home or self-care (01) ==
LOC: SED 13:25
DX: N39.0 Urinary tract infection, site not specified (principal); R53.1 Weakness; R50.9 Fever, unspecified; M79.10 Myalgia, unspecified site; J44.9 Chronic obstructive pulmonary disease, unspecified; E11.9 Type 2 diabetes mellitus without complications; I10 Essential (primary) hypertension; K21.9 Gastro-esophageal reflux disease without esophagitis; Z79.899 Other long term (current) drug therapy; Z20.822 Contact with and (suspected) exposure to COVID-19
CPT/HCPCS: 99285; 71045; 87426; 80053; 81000; 85025; 87040; 87086; 84484; 36415; 93005; 96372; 83605; 87804 ×2; J0696; J2001